=== PATIENT | female | born 2000 | race American Indian/Alaskan Native ===

== ENCOUNTER 2019-08-07 15:25 | Emergency (ER) | payer MEDICAID ==
--- NOTE | 2019-08-07 20:06 | EDM.PDOC ---
ED HPI GENERAL MEDICAL PROBLEM - General Chief Complaint: Neurological Problem Stated Complaint: VISION PROBLEMS SENT BY DR CANNON Time Seen by Provider: 08/07/19 15:57 Source of Information: Reports: Patient, RN Notes Reviewed - History of Present Illness INITIAL COMMENTS - FREE TEXT/NARRATIVE: 19-year-old female has been sent here from Dr. Cannon and OB department for evaluation of headache and some left visual symptoms. She is 2 para 1 38 weeks . She was having some contractions earlier today and did present to OB for monitoring, not found to be in labor. She did discuss with Dr. Cannon and staff symptoms of headache and some flashing lights left eye this past morning and then some blurriness of vision left eye since that time. Labs were normal, blood pressure was good with no evidence for preeclampsia. She was then sent over here for further evaluation of headache and her left visual symptoms. At this time she states the headache is very mild , frontal. She states her eye feels better. Did have some flashing lights left eye for about a half an hour earlier today that did subsequently resolve. She feels like vision in the left eye is "mildly blurry". She has no discomfort left eye and has not had any diplopia. She has no facial swelling or discomfort. She does not wear glasses or contacts. No abdominal pain or cramping at this time. Had no leg discomfort or leg or ankle edema. Her BP, labs were good over in OB with no evidence for preeclampsia. Headache Pain Score (Numeric/FACES): 6 - Related Data Allergies Allergy/AdvReac Type Severity Reaction Status Date / Time No Known Allergies Allergy Verified 08/07/19 15:33 Home Meds: Home Meds Ferrous Sulfate [Iron] 325 mg PO 08/07/19 [History] Vits #93/Iron Fum/FA [ Formula Tablet] 08/07/19 [History] Past Medical History - Past Health History Medical/Surgical History: Denies Medical/Surgical History Social & Family History - Tobacco Use Smoking Status *Q: Never Smoker - Recreational Drug Use Recreational Drug Use: No ED ROS GENERAL - Review of Systems Review Of Systems: See Below Constitutional: Denies: Fever, Chills, Diaphoresis HEENT: Denies: Ear Pain, Eye Pain, Rhinitis, Sinus Problem, Throat Pain Cardiovascular: Denies: Chest Pain GI/Abdominal: Denies: Abdominal Pain, Nausea, Vomiting Musculoskeletal: Denies: Leg Pain, Joint Pain, Joint Swelling Skin: Denies: Rash Neurological: Denies: Dizziness, Numbness, Tingling, Trouble Speaking, Difficulty Walking ED EXAM, GENERAL - Physical Exam Exam: See Below General Appearance: Alert, No Apparent Distress Eye Exam: Bilateral Eye: EOMI, PERRL Ears: Normal External Exam Throat/Mouth: Normal Inspection, Normal Oropharynx Head: Atraumatic. No: Facial Swelling, Facial Tenderness Neck: Supple, Full Range of Motion Respiratory/Chest: No Respiratory Distress, Lungs Clear, Normal Breath Sounds Cardiovascular: Regular Rate, Rhythm GI/Abdominal: Non-Tender (Female) Exam: Other Back Exam: No: CVA Tenderness (L) (Abdomen appropriately distended), CVA Tenderness (R) Extremities: Normal Inspection, Normal Range of Motion. No: Pedal Edema, Leg Pain, Increased Warmth, Redness Neurological: Alert, Oriented, No Motor/Sensory Deficits Skin Exam: Warm, Dry, Normal Color Course - Vital Signs Last Recorded V/S: Last Vital Signs Temp 98.0 F 08/07/19 15:33 Pulse 77 08/07/19 15:33 Resp 16 08/07/19 15:33 BP 127/84 08/07/19 15:33 Pulse Ox 100 08/07/19 15:33 - Re-Assessments/Exams Free Text/Narrative Re-Assessment/Exam: 08/07/19 20:07 We did check visual acuity and her vision is reported to a band 2020 right eye, 20/70 left eye. Her pupils were midsize, equal, reactive. No periorbital swelling. No conjunctival injection or facial tenderness. Forehead nontender. Smiling, no significant discomfort. There are no focal neuro symptoms, no focal weakness, no neurologic drift, [id number] testing normal. I did discuss findings with Dr Cannon and option of getting a head CT but really do not feel that is justified at this time. I don't think there is a neurologic problem to explain flashing lights she had earlier today unless this is migraine headache related. The etiology of her decreased vision left eye unclear and also unclear what her baseline vision in his left eye. While I was discussing this with Dr. Cannon and then went back to visit with her she had left the room apparently having become inpatient waiting. 08/08/19 21:15 I did have her nurse, Nicol, give her a call relaying recomendation of Dr Cannon to see Dr Mosley, Friday, 08/09 and also my recomendation to follow up with eye Dr Isaias or CAROLINE, and also to return to ED if symptoms worsening in any way. Departure - Departure Time of Disposition: 20:15 Disposition: Home, Self-Care 01 Condition: Fair Clinical Impression: Third trimester , Visual symptoms Headache Qualifiers: Headache type: unspecified Headache chronicity pattern: unspecified pattern Intractability: not intractable Qualified Code(s): R51 - Headache - Discharge Information Referrals: Laol Wahl MD [Primary Care Provider] - Forms: ED Department Discharge
--- NOTE | 2019-08-07 22:43 | PCM.SN ---
- Free Text/Narrative Note: Milagros is a 19-year-old 2 para 1001 cd female was seen in outpatient labor and delivery because of visual disturbances. She reports that she has blurry vision and some shooting light type symptoms in lateral aspect of her left eye. Right eye does not seem to be involved. She is 39 weeks gestational age. Concerns regarding . She has had some contractions but these have been minimal. Baby has been active. She denies any significant swelling or symptoms of preeclampsia. She has had a mild to moderate headache today. Lesions evaluated in labor and delivery and on clinical evaluation by nursing staff in labor and delivery patient vital signs stable. She is afebrile. There are no clinical signs of preeclampsia. No significant edema. Monitoring is performed and shows contractions approximately every 9-10 minutes , mild and nonprogressive. Patient does not feel them readily. Cervix did not change during the course of time spent in labor and delivery. She had no evidence of rupture membranes or uterine bleeding. NST was reactive. Laboratory testing wasdone to evaluate for preeclampsia was essentially normal. CBC was normal. Liver function studies were normal limits. Uric acid was 4.3. Urinalysis showed 1+ protein. Because of patient's visual disturbances and concern over possible ophthalmologic accident or disorder patient was cleared obstetrically and then sent to the emergency room to evaluated by the ED physicians. Report is in a separate document within this chart. Dr. Hinds, ED physician, reported that neurologically the patient appeared intact and that he did not feel a CT of the head was warranted. Ophthalmologic exam was also unremarkable per his report. Patient was treated for her headache and then was discharged home from the ED. Assessment: 1. Visual disturbances left eyeetiology uncertain. Does not appear to be preeclampsia or related. 2. 39 week pregnancyreassuring testing with reactive NST. 3. Occasional mild but has not progressed contractions. Cannot entirely rule out early labor but doubt at this time is no cervical change occurred. Plan: 1. Patient return to her primary care provider Dr. Lalo Wahl in 2 days. She is to call if symptoms increase in severity. 2. Patient is to monitor activity for well-being.
== END 2019-08-07 17:24 | disposition home or self-care (01) ==
LOC: JD.ED 15:25
DX: O99.89 Other specified diseases and conditions complicating pregnancy, childbirth and the puerperium (principal); R51 Headache; H54.52A1 Low vision left eye category 1, normal vision right eye; Z3A.38 38 weeks gestation of pregnancy
CPT/HCPCS: 99284

== ENCOUNTER 2019-08-09 02:45 | Inpatient (IN) | payer MEDICAID ==
[~2019-08-09 02:45] MED LIST: Bupivacaine 0.25% 10 ML SDV ONE
[2019-08-09] MEDS ORDERED: Sodium Chloride 0.9% 10 ML Syringe FLUSH PRN (03:44)
[2019-08-09] MEDS ORDERED: Nalbuphine 10 MG/1 ML Vial IVPUSH PRN (03:44)
[2019-08-09] MEDS ORDERED: Oxytocin/Lactated Ringers 10 UNIT/1,000 ML BAG IV SCH (03:45)
[2019-08-09] MEDS: Lactated Ringers 1,000 ML IV SCH ×4 (03:46→09:20)
[2019-08-09] MEDS ORDERED: diphenhydrAMINE 50 MG/ML SDV IVPUSH PRN (04:34)
[2019-08-09] MEDS ORDERED: ePHEDrine 50 MG/ML SDV IVPUSH PRN (04:34)
[2019-08-09] MEDS ORDERED: fentaNYL/Bupivacaine in NS PF 2 MCG-0.125% 250 ML Premix EPIDUR PRN (04:34)
[2019-08-09] MEDS ORDERED: fentaNYL 100 MCG/2 ML SDV EPIDUR PRN (04:34)
--- NOTE | 2019-08-09 05:18 | PCM.PREANE ---
Preanesthetic Assessment - Anesthesia/Transfusion/Family Hx Anesthesia History: Prior Anesthesia Without Reaction Family History of Anesthesia Reaction: No - Review of Systems General: No Symptoms Pulmonary: No Symptoms Cardiovascular: No Symptoms Gastrointestinal: Other (GERD) Neurological: Other (Visual disturbance to left eye, in the ER 2 days ago. Resolved. ) Other: Reports: None - Physical Assessment Height: 1.73 m Weight: 75.296 kg ASA Class: 2 Mental Status: Alert & Oriented x3 Airway Class: Mallampati = 2 Dentition: Reports: Normal Dentition (Overbite with crowding. ) Thyro-Mental Finger Breadths: 3 Mouth Opening Finger Breadths: 3 ROM/Head Extension: Full Lungs: Clear to Auscultation, Normal Respiratory Effort Cardiovascular: Regular Rate, Regular Rhythm - Lab Values: Laboratory Last Values WBC 6.70 K/mm3 (3.98-10.04) 08/09/19 04:04 RBC 3.79 M/mm3 (3.98-5.22) L 08/09/19 04:04 Hgb 8.9 gm/dl (11.2-15.7) L 08/09/19 04:04 Hct 29.0 % (34.1-44.9) L 08/09/19 04:04 MCV 76.5 fl (79.4-94.8) L 08/09/19 04:04 MCH 23.5 pg (25.6-32.2) L 08/09/19 04:04 MCHC 30.7 g/dl (32.2-35.5) L 08/09/19 04:04 RDW Std Deviation 50.4 fL (36.4-46.3) H 08/09/19 04:04 Plt Count 246 K/mm3 (182-369) 08/09/19 04:04 MPV 11.0 fl (9.4-12.3) 08/09/19 04:04 Neut % (Auto) 65.5 % (34.0-71.1) 08/09/19 04:04 Lymph % (Auto) 23.9 % (19.3-51.7) 08/09/19 04:04 [place] % (Auto) 10.3 % (4.7-12.5) 08/09/19 04:04 Eos % (Auto) 0 (0.7-5.8) L 08/09/19 04:04 Baso % (Auto) 0.0 % (0.1-1.2) L 08/09/19 04:04 Neut # (Auto) 4.39 K/mm3 (1.56-6.13) 08/09/19 04:04 Lymph # (Auto) 1.60 K/mm3 (1.18-3.74) 08/09/19 04:04 [place] # (Auto) 0.69 K/mm3 (0.24-0.36) H 08/09/19 04:04 Eos # (Auto) 0.00 K/mm3 (0.04-0.36) L 08/09/19 04:04 Baso # (Auto) 0.00 K/mm3 (0.01-0.08) L 08/09/19 04:04 - Allergies Allergies/Adverse Reactions: Allergies Allergy/AdvReac Type Severity Reaction Status Date / Time No Known Allergies Allergy Verified 08/07/19 15:33 - Acknowledgements Anesthesia Type Planned: Epidural Pt an Appropriate Candidate for the Planned Anesthesia: Yes Alternatives and Risks of Anesthesia Discussed w Pt/Guardian: Yes Pt/Guardian Understands and Agrees with Anesthesia Plan: Yes PreAnesthesia Questionnaire - Past Health History Medical/Surgical History: Denies Medical/Surgical History HEENT History: Reports: None Cardiovascular History: Reports: None Respiratory History: Reports: None Gastrointestinal History: Reports: None Genitourinary History: Reports: None [employer] History: Reports: None Musculoskeletal History: Reports: None Neurological History: Reports: None Psychiatric History: Reports: Depression Endocrine/Metabolic History: Reports: None Hematologic History: Reports: Anemia Other Hematologic History: Pt taking Iron supplement daily. Immunologic History: Reports: None Oncologic (Cancer) History: Reports: None Dermatologic History: Reports: None - Infectious Disease History Infectious Disease History: Reports: None - Past Surgical History Head Surgeries/Procedures: Reports: None - HOME MEDS Home Medications: Home Meds Ferrous Sulfate [Iron] 325 mg PO 08/07/19 [History] Vits #93/Iron Fum/FA [ Formula Tablet] 08/07/19 [History] - CURRENT (IN HOUSE) MEDS Current Meds: Current Medications Diphenhydramine HCl (Benadryl) 25 mg IVPUSH Q6H PRN PRN Reason: pruritis Ephedrine Sulfate (Ephedrine Sulfate) 5 mg IVPUSH ASDIRECTED PRN PRN Reason: Hypotension Fentanyl (Sublimaze) 100 mcg EPIDUR Q3H PRN PRN Reason: Pain Last Admin: 08/09/19 05:09 Dose: 100 mcg Fentanyl/Bupivacaine HCl (Fentanyl/Bupivacaine/Ns 2 Mcg-0.125% 250 Ml) 2 mcg EPIDUR CONTINUOUS PRN PRN Reason: Pain Last Admin: 08/09/19 05:08 Dose: 2 mcg Lactated Ringer's (Ringers, Lactated) 1,000 mls @ 100 mls/hr IV ASDIRECTED [facility] Last Admin: 08/09/19 04:52 Dose: 999 mls/hr Oxytocin/Lactated Ringer's (Pitocin In Lr 10 Units/1,000 Ml) 10 unit in 1,000 mls @ 500 mls/hr IV ASDIRECTED [facility] Nalbuphine HCl (Nubain) 10 mg IVPUSH Q2H PRN PRN Reason: Pain Sodium Chloride (Saline Flush) 10 ml FLUSH ASDIRECTED PRN PRN Reason: Keep Vein Open
--- NOTE | 2019-08-09 08:33 | PCM.LDHP ---
L&D History of Present Illness - General Date of Service: 08/09/19 Admit Problem/Dx: Patient Status Order with Admit Dx/Problem 08/09/19 02:56 Patient Status [ADT] Routine 08/09/19 03:44 Patient Status [ADT] Routine Admission Diagnosis/Problem Admission Diagnosis/Problem 08/09/19 08:24 Milagros is a 19-year-old 2 para 1001 female was admitted in the early a.m. of 08/09/2019 in active labor with spontaneous rupture membranes occurring approximately 0230 hrs. on the day of admission.. She presently is 38-3/7 weeks gestational age with an ZULAY of 08/20/2019. Source of Information: Patient History Limitations: Reports: No Limitations - History of Present Illness Introduction:: Milagros is a 19-year-old 2 para 1001 female was admitted in the early a.m. of 08/09/2019 in active labor with spontaneous rupture membranes occurring approximately 0230 hrs. on the day of admission.. She presently is 38-3/7 weeks gestational age with an ZULAY of 08/20/2019.Patient reports some contractions. They're cryptic present every 5 minutes. She has an epidural in place for labor analgesia. heart tones are reassuring. On my first evaluation she is 6 cm, 90% effaced, 0 station, anterior position, cephalic presentation. Mild meconium is noted. SOCIAL MEDIA JOB TITLES history: Patient is 2 para 1001 white female at 38-3/7 weeks gestational age. Her certain last menstrual period was 11/10/2018. Menarche at age 13. Cycles every 28 days. She is not using any control time conception. Positive hCG on 12/18/2018. Patient's previous obstetric history includes the followin. Male born 12/03/2019 at 40 weeks gestational age after 24 hours of labor. 8 lbs. 12 oz. born in [place], [place]. Child's name is Brian. course: Patient's first visit was on 06/09/2019 at 28 weeks gestational age. She was seen on a fairly regular basis since that time. Her weight gain was from a pregravid weight of 147.8 pounds up to 158.6 pounds for approximately a 10 pound weight gain. Her fundal height growth was appropriate. Her vital signs were stable. Patient had an ultrasound done on 06/16/2019 at 31 weeks and 4 days and previously at 21 weeks. Her due date of 08/20/2019 was set by the first ultrasound at 21 weeks. Done prior to her transfer care to our clinic. Laboratory testing and shows blood to be O+ with a negative MRI screening. Her rubella titer shows immunity. RPR is nonreactive. Hepatitis B surface antigen and HIV assays were both negative. Patient was positive for chlamydia at first evaluation, was treated and a follow-up test of cure was negative. GC was negative. Second trimester labs showed hemoglobin 10.2 g/dL. Her platelets are 333,001 hour GTT was normal at 117. Her hepatitis C antibody was negative. Group B strep screen was negative. A chlamydia test of cure was done on 07/12/2019 and it was not detected. Patient is rubella immune. T dap was administered on 06/09/2019. Allergies: None Medications: 1. bupropion HCL XL 150 mg by mouth 2 tablets daily. 2. Ferrous sulfate 325 mg daily 3. plus tablets daily Past medical history: 1. Normal spontaneous vaginal delivery 18 lbs. 12 oz. baby. Past surgical history: Unremarkable Family history: Parents are alive and in generally good health. , bleeding, blood clotting problems or anesthesia problems noted in the family. Social history: Patient is single. She does not use any significant most alcohol , drugs or tobacco. She lives in [facility]. Patient does report that she did use alcohol during early time of the . Review of systems: In general patient has no complaints. Patient is brien. She has had spontaneous rupture membranes. He has been active. Skin: Negative Lungs: No infectious symptoms or shortness of breath Cardiovascular: No chest pain or exercise intolerance Breasts: Changes associated principally. Patient plans to breast-feed.. GI: Negative : Changes associated with . Musculoskeletal: Negative Neurological: Negative In general the patient is well-developed, well-nourished, pleasant female of stated age in no acute distress. Skin is warm dry without lesions. HEENT, neck and back within normal limits. Lungs are clear with good breath sounds in all lung de [place]. Cardiovascular exam shows regular and rhythm without murmurs. Breasts exam is deferred at this time. Patient does plan to breast-feed. Abdomen is gravid with fundal height consistent with term . Baby in vertex presentation by Bhavik maneuvers and by cervical exam Genital exam: Cervix is 6 cm, 90% effaced, 0 station, anterior position, soft, cephalic presentation. She has been noted to have mild meconium-stained amniotic fluid.. Extremities and neurological exam are grossly within normal limits. Pain Score: 10 - Related Data Allergies/Adverse Reactions: Allergies Allergy/AdvReac Type Severity Reaction Status Date / Time No Known Allergies Allergy Verified 08/07/19 15:33 Home Medications: Home Meds Ferrous Sulfate [Iron] 325 mg PO DAILY 08/07/19 [History] Vits #93/Iron Fum/FA [ Formula Tablet] 1 tab PO DAILY 08/07/19 [History] Past Medical History - Past Health History Medical/Surgical History: Denies Medical/Surgical History HEENT History: Reports: None Cardiovascular History: Reports: None Respiratory History: Reports: None Gastrointestinal History: Reports: None Genitourinary History: Reports: None SOCIAL MEDIA JOB TITLES History: Reports: None Musculoskeletal History: Reports: None Neurological History: Reports: None Psychiatric History: Reports: Depression Endocrine/Metabolic History: Reports: None Hematologic History: Reports: Anemia Other Hematologic History: Pt taking Iron supplement daily. Immunologic History: Reports: None Oncologic (Cancer) History: Reports: None Dermatologic History: Reports: None - Infectious Disease History Infectious Disease History: Reports: None - Past Surgical History Head Surgeries/Procedures: Reports: None Social & Family History - Family History Family Medical History: Noncontributory - Tobacco Use Smoking Status *Q: Former Smoker Used Tobacco, but Quit: Yes Month/Year Tobacco Last Used: pt states before this but usure of a date - Caffeine Use Caffeine Use: Reports: Soda - Recreational Drug Use Recreational Drug Use: No H&P Review of Systems - Review of Systems: Review Of Systems: See Below L&D Exam - Exam Exam: See Below - Vital Signs Vital Signs: Last Vital Signs Temp 36.6 C 08/09/19 03:08 Pulse 80 08/09/19 03:08 Resp 18 08/09/19 03:08 BP 142/87 H 08/09/19 03:08 Pulse Ox 100 08/09/19 03:08 Weight: 75.296 kg - Patient Data Lab Results Last 24 hrs: Laboratory Results - last 24 hr 08/09/19 08/09/19 08/09/19 Range/Units 03:44 04:04 04:35 WBC 6.70 (3.98-10.04) K/mm3 RBC 3.79 L (3.98-5.22) M/mm3 Hgb 8.9 L (11.2-15.7) gm/dl Hct 29.0 L (34.1-44.9) % MCV 76.5 L (79.4-94.8) fl MCH 23.5 L (25.6-32.2) pg MCHC 30.7 L (32.2-35.5) g/dl RDW Std Deviation 50.4 H (36.4-46.3) fL Plt Count 246 (182-369) K/mm3 MPV 11.0 (9.4-12.3) fl Neut % (Auto) 65.5 (34.0-71.1) % Lymph % (Auto) 23.9 (19.3-51.7) % [place] % (Auto) 10.3 (4.7-12.5) % Eos % (Auto) 0 L (0.7-5.8) Baso % (Auto) 0.0 L (0.1-1.2) % Neut # (Auto) 4.39 (1.56-6.13) K/mm3 Lymph # (Auto) 1.60 (1.18-3.74) K/mm3 [place] # (Auto) 0.69 H (0.24-0.36) K/mm3 Eos # (Auto) 0.00 L (0.04-0.36) K/mm3 Baso # (Auto) 0.00 L (0.01-0.08) K/mm3 Urine Opiates Screen Negative (IFZFXI=141) Ur Buprenorphine Scrn Negative (CUTOFF=10) Ur Oxycodone Screen Negative (XMH1FL=286) Urine Methadone Screen Negative (UUXUPP=756) Ur Propoxyphene Screen Negative (XMXKZS=828) Ur Barbiturates Screen Negative (WWSPEK=968) Ur Tricyclics Screen Negative (ZDWBZY=414) Ur Phencyclidine Scrn Negative (CUTOFF=25) Ur Amphetamine Screen Negative (JTPOKP=244) U Methamphetamines Scrn Negative (MMBWOD=456) U Benzodiazepines Scrn Negative (PJDRHA=403) U Cocaine Metab Screen Negative (CMMKLB=821) U Marijuana (THC) Screen Negative (CUTOFF=50) Blood Type O POSITIVE Gel Antibody Screen Negative Result Diagrams: 08/09/19 04:04 Problem List Initiated/Reviewed/Updated: Yes Orders Last 24hrs: Active Orders 24 hr Category Date Time Status Patient Status [ADT] Routine ADT 08/09/19 02:56 Active Patient Status [ADT] Routine ADT 08/09/19 03:44 Active Activity as Tolerated [RC] PFP Care 08/09/19 03:44 Active Communication Order [RC] ASDIRECTED Care 08/09/19 03:44 Active Heart Tones [RC] ASDIRECTED Care 08/09/19 03:45 Active Non Stress Test [RC] PER UNIT ROUTINE Care 08/09/19 02:56 Active Notify Provider [RC] ASDIRECTED Care 08/09/19 04:34 Active Notify Provider [RC] PFP Care 08/09/19 03:44 Active Notify Provider [RC] PRN Care 08/09/19 03:44 Active Peripheral IV Care [RC] . DIRECTED Care 08/09/19 03:45 Active Vital Signs [RC] PER UNIT ROUTINE Care 08/09/19 02:56 Active Vital Signs [RC] PER UNIT ROUTINE Care 08/09/19 03:44 Active Regular Diet [DIET] Diet 08/09/19 Breakfast Active RAPID PLASMA REAGIN,RPR [CHEM] Routine Lab 08/09/19 03:44 Ordered Bupivicaine/fentaNYL/NS [fentaNYL/Bupivacaine/NS 2 MCG- Med 08/09/19 04:34 Active 0.125% 250 ML] 2 mcg EPIDUR CONTINUOUS PRN Lactated Ringers [Ringers, Lactated] 1,000 ml Med 08/09/19 03:45 Active IV ASDIRECTED Nalbuphine [Nubain] Med 08/09/19 03:44 Active 10 mg IVPUSH Q2H PRN Oxytocin/Lactated Ringers [Pitocin in LR 10 Units/1,000 Med 08/09/19 03:45 Active ML] 10 unit in 1,000 ml IV ASDIRECTED Sodium Chloride 0.9% [Saline Flush] Med 08/09/19 03:44 Active 10 ml FLUSH ASDIRECTED PRN diphenhydrAMINE [Benadryl] Med 08/09/19 04:34 Active 25 mg IVPUSH Q6H PRN ePHEDrine [ePHEDrine sulfate] Med 08/09/19 04:34 Active 5 mg IVPUSH ASDIRECTED PRN fentaNYL [Sublimaze] Med 08/09/19 04:34 Active 100 mcg EPIDUR Q3H PRN Electronic Heart Tones Ext w TOCO [WOMSER] Oth 08/09/19 03:44 Ordered Routine Electronic Heart Tones Internal [WOMSER] Per Unit Oth 08/09/19 03:44 Ordered Routine Peripheral IV Insertion Adult [OM.PC] Routine Oth 08/09/19 03:44 Ordered Resuscitation Status Routine Resus Stat 08/09/19 02:56 Ordered Medication Orders Diphenhydramine HCl (Benadryl) 25 mg IVPUSH Q6H PRN PRN Reason: pruritis Ephedrine Sulfate (Ephedrine Sulfate) 5 mg IVPUSH ASDIRECTED PRN PRN Reason: Hypotension Fentanyl (Sublimaze) 100 mcg EPIDUR Q3H PRN PRN Reason: Pain Last Admin: 08/09/19 05:09 Dose: 100 mcg Fentanyl/Bupivacaine HCl (Fentanyl/Bupivacaine/Ns 2 Mcg-0.125% 250 Ml) 2 mcg EPIDUR CONTINUOUS PRN PRN Reason: Pain Last Admin: 08/09/19 05:08 Dose: 2 mcg Lactated Ringer's (Ringers, Lactated) 1,000 mls @ 100 mls/hr IV ASDIRECTED [facility] Last Admin: 08/09/19 04:52 Dose: 999 mls/hr Infusion: 08/09/19 04:52 Dose: 999 mls/hr Admin: 08/09/19 04:22 Dose: 999 mls/hr Infusion: 08/09/19 04:22 Dose: 999 mls/hr Admin: 08/09/19 03:46 Dose: 999 mls/hr Oxytocin/Lactated Ringer's (Pitocin In Lr 10 Units/1,000 Ml) 10 unit in 1,000 mls @ 500 mls/hr IV ASDIRECTED [facility] Nalbuphine HCl (Nubain) 10 mg IVPUSH Q2H PRN PRN Reason: Pain Sodium Chloride (Saline Flush) 10 ml FLUSH ASDIRECTED PRN PRN Reason: Keep Vein Open Assessment/Plan Comment:: 1.30-3/7 weeks intrauterine , spontaneous rupture membranes, active labor with advanced cervical dilation. 2. Mild meconium-stained amniotic fluid. 3. As factors include history of alcohol use in early , late care. Estimated pound 12 ounce baby with last 4. Patient is rubella immune 5. T dap Given on 06/09/2019 6. Patient plans to breast-feed. Plan: 1. Anticipate normal spontaneous vaginal delivery. 2. Epidural for labor analgesia. 3. Routine labor care 4. Support breast-feeding decision
[2019-08-09] MEDS ORDERED: Ibuprofen 600 MG Tab PO PRN (10:46)
[2019-08-09] MEDS ORDERED: Benzocaine/Menthol 20%-0.5% Spray 56 GM Canister TOP PRN (10:47)
[2019-08-09] MEDS ORDERED: Witch Hazel Medicated Pads 40/Jar TOP PRN (10:47)
--- NOTE | 2019-08-09 20:55 | PCM.SN ---
- Free Text/Narrative Note: Delivery note Milagros is a 19-year-old 2 now para 2002 female who was admitted on the early a.m. of 08/09/2019 with spontaneous rupture membranes resultant very mild meconium-stained amniotic fluid. She was at 38+ weeks gestational age. She progressed rapidly through labor and delivered a viable, summers, male infant with Apgars of 8 and 9, weight of 3290 g at 1010 hrs. She delivered the baby in a left occiput anterior position. Because of the mild meconium-stained amniotic fluid the vocal cord was clamped 2 and cut by the baby's father and the baby was taken to the warmer for Dr. Gallegos to evaluate and care for. Blood was obtained. The IV Pitocin was started at a rate of 500 mL an hour to facilitate increase in uterine tone and decrease likelihood of bleeding. Umbilical cord had 3 blood vessels. The placenta delivered in a Henry presentation, appeared intact and complete and scarred per patient desire. Estimated blood loss was 100 mL. The baby is noted to have what appeared to be a very large pedunculated skin tag in the upper anterior right chest area. He is also noted to have a small dimple entered by slightly increased amount of villous hair in the lower sacral area is fine. He was however moving his extremities very well and did not appear to be at a loss of neurologic function. The epidural was removed after delivering the baby. Condition: Good
--- NOTE | 2019-08-10 07:49 | PCM48HPAN ---
Post Anesthesia Note - EVALUATION WITHIN 48HRS OF ANESTHETIC Vital Signs in Normal Range: Yes Patient Participated in Evaluation: No (pt discharged early with transfer of baby, report per RN) Respiratory Function Stable: Yes Airway Patent: Yes Cardiovascular Function Stable: Yes Hydration Status Stable: Yes Pain Control Satisfactory: Yes Nausea and Vomiting Control Satisfactory: Yes Mental Status Recovered: Yes Vital Signs: Last Vital Signs Temp 36.6 C 08/09/19 03:08 Pulse 80 08/09/19 03:08 Resp 18 08/09/19 03:08 BP 142/87 H 08/09/19 03:08 Pulse Ox 100 08/09/19 03:08 - COMMENTS/OBSERVATIONS Free Text/Narrative:: no anesthesia complications noted
--- NOTE | 2019-08-11 06:12 | PCM.DCSUM1 ---
Discharge Summary - Hospital Course Free Text/Narrative:: Milagros is a 19-year-old 2 now para 2002 female who was admitted on the early a.m. of 08/09/2019 with spontaneous rupture membranes resultant very mild meconium-stained amniotic fluid. She was at 38+ weeks gestational age. She progressed rapidly through labor and delivered a viable, summers, male with Apgars of 8 and 9, weight of 3290 g at 1010 hrs. She delivered the baby in a left occiput anterior position. Because of the mild meconium-stained amniotic fluid the vocal cord was clamped 2 and cut by the baby's father and the baby was taken to the warmer for Dr. Gallegos to evaluate and care for. Blood was obtained. The IV Pitocin was started at a rate of 500 mL an hour to facilitate increase in uterine tone and decrease likelihood of bleeding. Umbilical cord had 3 blood vessels. The placenta delivered in a Henry presentation, appeared intact and complete and scarred per patient desire. Estimated blood loss was 100 mL. The baby is noted to have what appeared to be a very large pedunculated skin tag in the upper anterior right chest area. He is also noted to have a small dimple entered by slightly increased amount of villous hair in the lower sacral area is fine. He was however moving his extremities very well and did not appear to be at a loss of neurologic function. The epidural was removed after delivering the baby. the patient did well. Baby had a defect involving what appeared to be a very large skin tag appendage emanating from her right anterior chest area. For this and other reasons baby was transferred to [place] for further evaluation. Patient desired discharge so she could attend the baby in transferred to [place]. Discharge was granted. Condition: Good Diagnosis: Stroke: No - Discharge Data Discharge Date: 08/09/19 Discharge Disposition: Home, Self-Care 01 Condition: Good - Referral to Home Health Primary Care Physician: Yang Azevedo MD - Patient Instructions Diet: Regular Diet as Tolerated Activity: As Tolerated, No Lifting Over 10 Pounds, No Strenuous Activities Driving: May Drive Today Showering/Bathing: May Shower Notify Provider of: Fever, Increased Pain, Swelling and Redness - Discharge Plan Home Medications: Home Meds Ferrous Sulfate [Iron] 325 mg PO DAILY 08/07/19 [History] Vits #93/Iron Fum/FA [ Formula Tablet] 1 tab PO DAILY 08/07/19 [History] Patient Handouts: Home Care Instructions for Mom Referrals: aLlo Wahl MD [Physician] - (Return to clinic1 week[facility]Lexus Wahl.) - Discharge Summary/Plan Comment DC Time >30 min.: No Discharge Summary/Plan Comment: Discharge instructions: 1. Discharge home 2. Diet, activity and follow-up discussed with patient. Recommend nursing diet with increased calories and calcium. 3. Precautions given concern increased pain, bleeding, temperature, signs/ symptoms of DVT/PE. 4. Medications per home medication was printed, discussed with and given to the patient. 5. Return to clinic-Dr. Wahl[facility] in 2 weeks. Diagnosis: Term -delivered Condition: Good - Patient Data Vitals - Most Recent: Last Vital Signs Temp 36.6 C 08/09/19 03:08 Pulse 80 08/09/19 03:08 Resp 18 08/09/19 03:08 BP 142/87 H 08/09/19 03:08 Pulse Ox 100 08/09/19 03:08 Weight - Most Recent: 75.296 kg Med Orders - Current: Current Medications Discontinued Medications Benzocaine/Menthol (Dermoplast Pain Relief [place]) 1 gm TOP ASDIRECTED PRN PRN Reason: Pain Last Admin: 08/09/19 14:16 Dose: 1 spr Bupivacaine HCl (Sensorcaine-Mpf 0.25%) 10 ml .ROUTE .STK-MED ONE Stop: 08/09/19 00:01 Diphenhydramine HCl (Benadryl) 25 mg IVPUSH Q6H PRN PRN Reason: pruritis Ephedrine Sulfate (Ephedrine Sulfate) 5 mg IVPUSH ASDIRECTED PRN PRN Reason: Hypotension Fentanyl (Sublimaze) 100 mcg EPIDUR Q3H PRN PRN Reason: Pain Last Admin: 08/09/19 05:09 Dose: 100 mcg Fentanyl/Bupivacaine HCl (Fentanyl/Bupivacaine/Ns 2 Mcg-0.125% 250 Ml) 2 mcg EPIDUR CONTINUOUS PRN PRN Reason: Pain Last Admin: 08/09/19 05:08 Dose: 2 mcg Lactated Ringer's (Ringers, Lactated) 1,000 mls @ 100 mls/hr IV ASDIRECTED SPENCER Last Admin: 08/09/19 09:20 Dose: 100 mls/hr Oxytocin/Lactated Ringer's (Pitocin In Lr 10 Units/1,000 Ml) 10 unit in 1,000 mls @ 500 mls/hr IV ASDIRECTED [facility] Last Admin: 08/09/19 10:10 Dose: 500 mls/hr Ibuprofen (Motrin) 600 mg PO Q6H PRN PRN Reason: Pain Nalbuphine HCl (Nubain) 10 mg IVPUSH Q2H PRN PRN Reason: Pain Sodium Chloride (Saline Flush) 10 ml FLUSH ASDIRECTED PRN PRN Reason: Keep Vein Open Witbrandon Pratt (Tucks) 1 pad TOP ASDIRECTED PRN PRN Reason: Pain Last Admin: 08/09/19 14:16 Dose: 1 pad
== END 2019-08-09 20:24 | disposition home or self-care (01) | DRG 807 ==
LOC: JD.OBCHECK 02:45 → JD.OB 02:49 → JD.OBCHECK 03:44 → JD.OB 04:19 → OBSVTOIN 10:10 → JD.OB 10:31
PROVIDERS: ADMIT Obstetrics & Gynecology; ATTEND Obstetrics & Gynecology
PROC: 10E0XZZ Delivery of Products of Conception, External Approach (ICD-10-PCS; principal; 2019-08-09)
DX: O77.0 Labor and delivery complicated by meconium in amniotic fluid (principal); Z37.0 Single live birth; O99.02 Anemia complicating childbirth; D64.9 Anemia, unspecified; Z3A.38 38 weeks gestation of pregnancy; Z87.891 Personal history of nicotine dependence
CPT/HCPCS: 01967; 36415; 51702; 59025; 59409; 80306; 85025; 86592; 86850; 86900; 86901; A9270-GY; J2590; J3010; J3490; J7120